=== PATIENT | male | born 1935 | race Hispanic/Latino ===

== ENCOUNTER 2017-06-04 20:43 | Emergency (ER) | payer OTHER, MEDICARE ==
[~2017-06-04 20:43] MED LIST: AMIO200T44 PO; APIX2.5T PO; CARV3.1262 PO; CHOL500050 PO; FURO20TA4 PO; LISI-613 PO; POTA20TA12 PO; PRAV20TA4 PO; VITAMIN D3 PO
[2017-06-04 22:14] LABS: APPEARANCE,URINE Clear (CLEAR); BILIRUBIN,URINE Moderate (NEGATIVE); COLOR,URINE Dark Yellow (YELLOW); GLUCOSE, URINE (UA) Negative (NEGATIVE); KETONES,URINE Trace mg/dL (NEGATIVE); LEUKOCYTE ESTERASE ,URINE Trace (NEGATIVE); NITRATE,URINE Negative (NEGATIVE); OCCULT BLOOD,URINE Negative (NEGATIVE); PROTEIN,URINE Negative (NEGATIVE)
[2017-06-04 22:26] LABS: INR 1.13 (0.85-1.15); PARTIAL THROMBOPLASTIN TIME 31.7 SEC (26.3-35.5); PROTHROMBIN TIME 11.8 SEC (9.6-11.6)
[2017-06-04 22:31] LABS: EOSINOPHILS % (AUTO) 1.2 % (0.0-8.0); HEMATOCRIT 41.9 % (42-54); LYMPHOCYTES % (AUTO) 16.2 % (21.0-51.0); MEAN CORPUSCULAR HEMOGLOBIN 34.2 pg (27.0-33.0); MEAN CORPUSCULAR HGB CONC 34.4 g/dL (32.0-36.0); MEAN CORPUSCULAR VOLUME 99.6 fL (79-99); MONOCYTES % (AUTO) 12.8 % (3.0-13.0); NEUTROPHILS % (AUTO) 68.8 % (40.0-77.0); PLATELET COUNT (AUTO) 141 K/uL (130-400); RED CELL DISTRIBUTION WIDTH 16.2 % (11.0-15.5)
[2017-06-04 22:32] LABS: CREATININE 1.7 mg/dL (0.5-1.5); POTASSIUM 4.4 mmol/L (3.5-5.1)
[2017-06-04 22:45] LABS: ALBUMIN 3.1 g/dL (3.5-5.0); BILIRUBIN,TOTAL 0.6 mg/dL (0.2-1.0); CREATINE KINASE MB 1.8 ng/mL (0.5-3.6); TOTAL PROTEIN, SERUM 5.7 g/dL (6.0-8.3)
[2017-06-04 22:51] LABS: BACTERIA,URINE Few /HPF (None Seen); HYALINE CASTS, URINE 0-1 /LPF (0-1 /LPF); MUCUS,URINE Few LPF (None Seen); SQUAMOUS EPITHELIAL CELL,UR 0-2 /LPF (0-2); WBC,URINE 0-1 /HPF (0-1)
== END 2017-06-05 00:52 | disposition home or self-care (01) ==
LOC: EDH 20:43
DX: I72.3 Aneurysm of iliac artery (principal); R10.84 Generalized abdominal pain; N28.89 Other specified disorders of kidney and ureter; I10 Essential (primary) hypertension; I25.2 Old myocardial infarction; E07.9 Disorder of thyroid, unspecified
CPT/HCPCS: 36415; 74176; 80053; 81001; 82150; 82550; 82553; 83690; 84484; 85025; 85610; 85730; 93005; 94761